=== PATIENT | female | born 1940 | race Caucasian/White ===

== ENCOUNTER 2018-03-20 10:01 | Outpatient (CLI) | payer MEDICARE ==
[2018-03-20 10:45] LABS: TOTAL HEMOGLOBIN 14.1 G/dl (12.0-16.0)
== END 2018-03-20 23:59 | disposition home or self-care (01) ==
LOC: RT 10:01
PROVIDERS: ATTEND Internal Medicine Pulmonary Disease
DX: J44.9 Chronic obstructive pulmonary disease, unspecified (principal); Z87.891 Personal history of nicotine dependence
CPT/HCPCS: 85018; 94010; 94727; 94729

== ENCOUNTER 2019-02-20 18:15 | Emergency (ER) | payer MEDICARE ==
[~2019-02-20] VITALS: Ht 162.6 cm; Wt 78.0 kg
--- NOTE | 2019-02-20 18:41 | NUR ---
Dr. Davis to triage to evaluate patient for orders.
[2019-02-20] MEDS ORDERED: HYDROcodone/acetaminophen 10/325mg tab PO ONE (18:45)
[2019-02-20] MEDS ORDERED: HYDROcodone/acetaminophen 5mg/325mg tablet PO ONE (21:35)
[2019-02-20] MEDS ORDERED: morphine 4 MG/ML inj SYRINge IM ONE (22:55)
[2019-02-20] MEDS ORDERED: HYDR-4383 PO (23:00)
[2019-02-20] MEDS ORDERED: SENN-162 PO (23:00)
[2019-02-20 23:16] VITALS: BP 144/65
== END 2019-02-20 23:18 | disposition home or self-care (01) ==
LOC: ER 18:15
DX: R07.81 Pleurodynia (principal); M25.532 Pain in left wrist; M25.512 Pain in left shoulder; Z79.899 Other long term (current) drug therapy; W18.49XA Other slipping, tripping and stumbling without falling, initial encounter; Y93.89 Activity, other specified; Y92.89 Other specified places as the place of occurrence of the external cause; Y99.9 Unspecified external cause status
CPT/HCPCS: 70450; 71046; 71100; 73030; 73110; 99284; J2270

== ENCOUNTER 2022-11-23 13:03 | Outpatient (CLI) | payer MEDICARE ==
[~2022-11-23 13:03] MED LIST: HYDR-4383 PO; SENN-263 PO
== END 2022-11-23 23:59 | disposition home or self-care (01) ==
LOC: RAD 13:03
PROVIDERS: ATTEND Family Medicine
DX: R13.14 Dysphagia, pharyngoesophageal phase (principal); K21.9 Gastro-esophageal reflux disease without esophagitis
CPT/HCPCS: 74230